=== PATIENT | female | born 1985 | race Two or more races ===

== ENCOUNTER 2018-07-05 20:08 | Emergency (ER) | payer SELFPAY ==
[~2018-07-05] VITALS: Ht 157.5 cm; Wt 76.2 kg
[~2018-07-05 20:08] MED LIST: CEPHALEXIN500 MG PO; IBUPROFEN400 MG PO; NKM
[2018-07-05] MEDS: Ketorolac 60mg Inj IM ONE (21:05)
[2018-07-05] MEDS: Lidocaine 1% 10mg/ml/Epi 0.005mg/ml 30ml vial INJ ONE ×2 (21:06→21:39)
[2018-07-05] MEDS ORDERED: DOXYCYCLINE MO100 MG ORAL (21:38)
[2018-07-05] MEDS ORDERED: NORCO 5-325 TA1 EACH ORAL (21:38)
[2018-07-05 21:40] VITALS: BP 131/76
[2018-07-05 21:50] VITALS: BP 131/74
--- NOTE | 2018-07-06 14:18 | Emergency Room Report ---
History of Present Illness General Chief Complaint: Female Urogenital Problems Source: Patient Present Illness HPI Patient is a 33-year-old female presented after increased right labial pain and swelling. Patient gradual onset of symptoms. The patient denies any fever. She reports having increased discomfort with ambulation. She denies any abdominal pain or vomiting. She denies being . She states she's had a tubal ligation. Allergies: Coded Allergies: No Known Allergies (Unverified , 08/16/12) Patient History Past Medical History: see triage record Last Menstrual Period: right now : 0 Para: 0 Reviewed Nursing Documentation: PMH: Agreed; PSxH: Agreed Nursing Documentation-PMH Past Medical History: No Stated History Review of Systems All Other Systems: negative except mentioned in HPI Physical Exam Vital Signs Date Time Temp Pulse Resp B/P (MAP) Pulse Ox O2 Delivery O2 Flow Rate FiO2 07/05/18 20:16 98.1 97 16 128/84 97 07/05/18 21:40 Room Air General Appearance: well appearing, no apparent distress, obese Head: normocephalic, atraumatic ENT: hearing grossly normal, normal voice Neck: full range of motion, supple Respiratory: no respiratory distress, speaking full sentences Gastrointestinal: normal inspection Genitourinary: other - right labial swelling and fluctuance Musculoskeletal: normal inspection, back normal Neurologic: normal inspection, alert, oriented x3, responsive, tobacco baler III-XII nml as tested, normal gait Psychiatric: normal inspection, mood/affect normal Skin: no rash Procedures Incision and Drainage Incision and Drainage : Consent: Verbal Site: right labial Blade Size: 15 I & D Procedure: betadine prep, sterile drapes applied, sterile dressing applied Wound Location: pelvis Wound's Depth, Shape: superficial Wound Length (cm): 1 Wound Explored: clean Anesthesia: Lidocaine w/ Epi Volume Anesthetic (ccs): 5 Patient Tolerated: Well Complications: None Progress drained 3 ml of purulent material Medical Decision Making Diagnostic Impression: Primary Impression: Bartholin's gland abscess ER Course Patient presented for right labial swelling. Differential diagnosis included was not limited to Bartholin's glands abscess, necrotizing fasciitis, gonorrhea , chlamydia among others. Patient has a benign exam and does not appear to require any further imaging or laboratory testing at this time. The patient was consented for incision and drainage. The right Bartholin's gland abscess was incised with a #15 blade. Approximately 3 mL's of pus was drained. The patient tolerated well. Patient is advised to recheck with her [employer] in the next few days. Last Vital Signs Date Time Temp Pulse Resp B/P (MAP) Pulse Ox O2 Delivery O2 Flow Rate FiO2 07/05/18 21:50 98.4 81 18 131/74 99 Room Air Disposition: HOME, SELF-CARE Condition: Stable Scripts Hydrocodone Bit/Acetaminophen 5-325* (NORCO 5-325*) 1 Each Tablet 1 TAB ORAL Q6H PRN for For Pain, #10 TAB 0 Refills Prov: Pablo Alexander MD 07/05/18 Doxycycline Monohydrate* (DOXYCYCLINE MONOHYDRATE*) 100 Mg Capsule 100 MG ORAL Q12H, #14 CAP 0 Refills Prov: Pablo Alexander MD 07/05/18 Referrals: NOT CHOSEN [facility]/,REFERRING (PCP) Departure Forms: Return to Work Patient Instructions: Bartholin Cyst or Abscess Pablo Alexander MD Jul 06, 2018 14:18
== END 2018-07-05 21:50 | disposition home or self-care (01) ==
LOC: EMR 20:53
DX: N75.1 Abscess of Bartholin's gland (principal)
CPT/HCPCS: 10060; 96372; 99283

== ENCOUNTER 2019-08-14 09:44 | Emergency (ER) | payer SELFPAY ==
[~2019-08-14] VITALS: Ht 162.6 cm; Wt 72.6 kg
[~2019-08-14 09:44] MED LIST changes: +DOXYCYCLINE MO100 MG ORAL; +NORCO 5-325 TA1 EACH ORAL
[2019-08-14 09:59] VITALS: BP 112/74
--- NOTE | 2019-08-14 09:59 | NUR ---
ED Nurse Note: Patient arrived to ED from home complaining of lower back pain x 2 days. Patient states that the pain started with no known cause, she denies injury or fall. Pain is curretnly 9/10 aching pain isolated to the low back, does not radiate. Gets worse with movement. Patient also has sore throat x 2 days. VSS, bed in lowest position.
[2019-08-14] MEDS ORDERED: Lidocaine 2% MPF 5ml Vial INJ ONE (10:45)
--- NOTE | 2019-08-14 10:45 | NUR ---
ED Nurse Note: Per Dr. Plummer, patient does not need to provide a urine sample.
[2019-08-14 11:53] VITALS: BP 115/72
--- NOTE | 2019-08-14 13:13 | Emergency Room Report ---
History of Present Illness General Chief Complaint: Lower Back Pain or Injury Source: Patient Present Illness HPI Patient states she has had pain on her buttock and a swelling and tenderness for the past week. She states that the pain is worse. She has had this previously and it was an abscess in another location on her buttock. No other complaints. Allergies: Coded Allergies: No Known Allergies (Unverified , 08/16/12) Patient History Past Surgical History: none Social History: Denies: smoking, alcohol use, drug use Reviewed Nursing Documentation: PMH: Agreed; PSxH: Agreed Nursing Documentation-PMH Past Medical History: No Stated History Review of Systems All Other Systems: negative except mentioned in HPI Physical Exam Vital Signs Date Time Temp Pulse Resp B/P (MAP) Pulse Ox O2 Delivery O2 Flow Rate FiO2 08/14/19 09:50 98.1 80 16 112/74 (87) 98 Room Air Sp02 EP Interpretation: reviewed, normal General Appearance: no apparent distress, alert, GCS 15, non-toxic Head: normocephalic, atraumatic Eyes: bilateral eye normal inspection, bilateral eye PERRL ENT: hearing grossly normal, normal pharynx, no angioedema, normal voice Neck: full range of motion, supple/symm/no masses Respiratory: no respiratory distress, no retraction, no accessory muscle use, speaking full sentences Rectal: deferred Musculoskeletal: back normal, normal range of motion, gait/station normal, non- tender Neurologic: alert, motor strength/tone normal, oriented x3, sensory intact, responsive, speech normal Psychiatric: judgement/insight normal, memory normal, mood/affect normal, no suicidal/homicidal ideation Skin: other - Quarter sized fluctuant mass R. buttock just lateral to the gluteal cleft. Lymphatic: no adenopathy Procedures Incision and Drainage Incision and Drainage : Consent: Verbal Site: Buttock Blade Size: 11 I & D Procedure: betadine prep, gauze wick placed Wound Location: other - buttock Irrigated w/ Saline (ccs): 200 Anesthesia: other - 2%lidocaine Volume Anesthetic (ccs): 5 Patient Tolerated: Well Complications: None Progress Large amount of purulent discharge was obtained with incision and drainage at the maximum fluctuance. Medical Decision Making Diagnostic Impression: Primary Impression: Pilonidal cyst with abscess ER Course This patient has a pilonidal cyst and abscess. The abscess was drained in the typical fashion. Purulent discharge was obtained. The patient was educated that she would need to follow-up with a general surgeon for full resection to prevent recurrence. She had a previous abscess and has a recurrence and likely needs a surgical excision of the cyst to prevent recurrence. We will also place patient on a course of antibiotics to cover MRSA. Patient is given close return precautions and follow-up instructions. Last Vital Signs Date Time Temp Pulse Resp B/P (MAP) Pulse Ox O2 Delivery O2 Flow Rate FiO2 08/14/19 11:53 97.9 83 16 115/72 100 Room Air Status: improved Disposition: HOME, SELF-CARE Condition: Improved Referrals: NOT CHOSEN [facility]/,REFERRING (PCP) Manuela Plummer DO Aug 14, 2019 13:13
[2019-08-14] MEDS ORDERED: IBUPROFEN600 MG ORAL (13:15)
[2019-08-14] MEDS ORDERED: VIBRAMYCIN100 MG ORAL (13:15)
[2019-08-14 13:20] VITALS: BP 119/76
--- NOTE | 2019-08-14 13:20 | NUR ---
ED Nurse Note: Pt cleared by health care Provider for discharge. DC instructions/prescription was given and explained to pt and verbalized understanding of teachings. ID band removed, patient AxO x 4, no s/s of acute distress, gait steady.
== END 2019-08-14 13:20 | disposition home or self-care (01) ==
LOC: EMR 10:12
DX: L05.01 Pilonidal cyst with abscess (principal)
CPT/HCPCS: 99283